=== PATIENT | male | born 1985 | race Caucasian/White ===

== ENCOUNTER → 2017-08-31 | Outpatient (CLI) | payer BC ==
[~2017-08-31] MED LIST: BENTYL20 MG PO; CIPROFLOXACIN500 M1 PO; CLARITIN10 MG PO; FLAGYL500 MG PO; PROMETHAZINE12.5 M1 PO; VICODIN 5-5001 EACH PO; ZOFRAN ODT4 MG SUBLING; ZOFRAN4 MG PO
== END ==
LOC: M.RAD 16:26
DX: M54.41 Lumbago with sciatica, right side (principal); M25.561 Pain in right knee; M25.551 Pain in right hip; M79.604 Pain in right leg; G89.29 Other chronic pain